=== PATIENT | female | born 1970 | race Caucasian/White ===

== ENCOUNTER 2024-02-04 08:53 | Inpatient (IN) | payer OTHER ==
[2024-02-04] MEDS ORDERED: Lorazepam 2 MG/ML VIAL ONE (09:23)
[2024-02-04 10:05] LABS: #Basophils Less than 0.03 10x3/uL (0.0-0.2); #Eosinophils Less than 0.03 10x3/uL (0.0-0.7); %Basophils 0.2 % (0.0-1.0); %Eosinophils 0.1 % (0.0-10.0); %Neutrophils 86.1 % (42.0-75.0); Hematocrit 35.3 % (36.0-47.0); Hemoglobin 12.1 g/dL (12.0-16.0); Mean Corpuscular HGB CONC 34.3 g/dL (32.0-36.0); Mean Corpuscular Hemoglobin 31.4 pg (27.0-31.0); Mean Corpuscular Volume 91.7 fL (78.0-98.0); Mean Platelet Volume 9.8 fL (7.4-10.4); Platelet Count 191 10x3/uL (130-400); Red Blood Cell (RBC) Count 3.85 mill/uL (4.20-5.40)
[2024-02-04 10:25] LABS: Acetaminophen Less than 10 mcg/mL (Less than 10); Alcohol Less than 10.0 mg/dL (Less than 10); Salicylate Less than 8.0 mg/dL (Less than 8.0)
[2024-02-04 10:27] LABS: ALT (SGPT) 49 U/L (8-55); AST (SGOT) 45 U/L (5-34); Albumin 4.2 g/dL (3.5-5.0); Alkaline Phosphatase 218 U/L (40-110); Anion Gap 16 mmol/L (10-20); BUN (Urea Nitrogen) 9 mg/dL (9.8-20.1); Bilirubin, Total 0.6 mg/dL (0.2-1.2); Calc. Creatinine Clearance 0 mL/min (70-130); Calcium 9.5 mg/dL (7.8-10.44); Carbon Dioxide 22 mmol/L (22-29); Chloride 101 mmol/L (98-107); Estimated GFR 101; Globulin 3.4 g/dL (2.4-3.5); Glucose 141 mg/dL (70-105); Potassium 3.7 mmol/L (3.5-5.1); Protein, Total 7.6 g/dL (6.0-8.3); Sodium 135 mmol/L (136-145)
[2024-02-04 10:29] LABS: INR-International Normal Ratio 1.1; PTT 27.2 sec (22.9-36.1)
[2024-02-04] MEDS ORDERED: Iopamidol-370 76% 500 ML MDV (1 ML CHARGE) ONE (10:37)
[2024-02-04] MEDS ORDERED: Acetaminophen 650 MG Suppository ONE (10:39)
[2024-02-04 10:48] LABS: Bacteria/HPF None Seen HPF (None Seen); Bilirubin Negative (Negative); Blood, Urine Negative (Negative); CAUTI Indications for Culture Acute Hematuria; Clarity Clear (Clear); Glucose, Urine (Dipstick) Normal (Negative); Ketone, Urine Negative (Negative); Leukocyte Negative Leu/uL (Negative); Nitrite Negative (Negative); Protein, Urine (Dipstick) Negative (Neg-Trace); RBC/HPF 0-3 HPF (0-3); Urobilinogen Normal mg/dL (Less than 2); WBC/HPF 0-3 HPF (0-3); pH, Urine 7.5 (5.0-9.0)
[2024-02-04 10:54] LABS: Urine Culture Reflex No No
[2024-02-04 10:59] LABS: Amphetamine Not Detected (NotDetected); Barbiturates Screen Detected (NotDetected); Benzodiazepine Screen Detected (NotDetected); Cocaine Metabolite Screen Not Detected (NotDetected); Methadone Not Detected (NotDetected); Methamphetamine Not Detected (NotDetected); Opiate Screen Detected (NotDetected); Oxycodone Screen Not Detected (NotDetected); Phencyclidine (PCP) Not Detected (NotDetected); THC/Cannabinoid Screen Not Detected (NotDetected); Tricyclic Screen Not Detected (NotDetected)
[2024-02-04 11:51] LABS: Color Of CSF Supernatant COLORLESS (Colorless); Tube # 2; Unspun CSF Color COLORLESS (Colorless)
[2024-02-04 11:56] LABS: Troponin I Less than 0.010 ng/mL (< 0.028)
[2024-02-04 12:06] LABS: CSF Source CSF; Clarity Hazy (Clear); Tube # 1
[2024-02-04 12:22] LABS: CSF Source CSF; Clarity Hazy (Clear); Tube # 4
[2024-02-04 12:29] LABS: CSF, Protein 326.6 mg/dL (15-40)
[2024-02-04 12:36] LABS: CSF, Glucose 66 mg/dl (40-70)
[2024-02-04] MEDS ORDERED: Dexamethasone 10 MG/ML VIAL ONE (13:41)
[2024-02-04] MEDS ORDERED: Sodium Chloride 0.9% 100 ML ONE (13:42)
[2024-02-04] MEDS ORDERED: cefTRIAXone (ROCEPHIN) 2 GM VIAL ONE (13:42)
[2024-02-04 14:21] LABS: Cell Count Non Hematic 23 %; Lymphocytes 76 %; Segmented Neutrophils 1 %
[2024-02-04 14:23] LABS: Cell Count Non Hematic 27 %; Eosinophils 1 %; Lymphocytes 71 %
[2024-02-04] MEDS ORDERED: Morphine 4 MG/ML VIAL ONE ×2 (14:54→18:31)
[2024-02-04] MEDS ORDERED: Acetaminophen 500 MG TAB ONE (14:54)
[2024-02-04] MEDS ORDERED: Ondansetron PF 4 MG/2 ML Vial ONE (14:54)
[2024-02-04 15:15] LABS: Reference Lab Name LABCORP
[2024-02-04] MEDS ORDERED: Thiamine HCl 200 MG/2 ML VIAL ONE (15:23)
[2024-02-04] MEDS ORDERED: Calcium Carbonate 500 MG ChewTAB PO PRN (16:04)
[2024-02-04] MEDS ORDERED: Acetaminophen 650 MG Suppository PR PRN (16:04)
[2024-02-04] MEDS ORDERED: Ondansetron ODT 4 MG TAB PO PRN (16:04)
[2024-02-04] MEDS ORDERED: Lorazepam 2 MG/ML VIAL IM PRN (16:06)
[2024-02-04] MEDS ORDERED: Lorazepam 1 MG TAB PO PRN (16:06)
[2024-02-04] MEDS ORDERED: Electrolyte Replacement Protocol 1 EACH FS SCH (16:15)
[2024-02-04] MEDS ORDERED: Labetalol HCl 100 MG/20 ML VIAL SLOW IVP PRN (17:21)
[2024-02-04] MEDS ORDERED: Lorazepam 2 MG/ML VIAL SLOW IVP PRN (17:24)
[2024-02-04] MEDS ORDERED: Dexamethasone 4 mg/ml Vial SLOW IVP SCH (20:00)
[2024-02-04] MEDS: SODIUM CHLORIDE 0.9% IVPB SCH (20:42)
[2024-02-04] MEDS: Vancomycin (BATCH) 1.75 GM in Premix 1 BAG IVPB SCH (20:42)
[2024-02-04] MEDS: ACYCLOVIR SODIUM IVPB SCH (20:42)
[2024-02-04] MEDS: Vancomycin (BATCH) 1.5 GM in Premix 1 BAG IVPB SCH (20:43)
[2024-02-04] MEDS: Thiamine HCl 200 MG/2 ML VIAL SLOW IVP SCH (20:43)
[2024-02-04 20:48] VITALS: BMI 24.0
[2024-02-04] MEDS ORDERED: Vancomycin 1 GM in Premix 1 BAG IVPB SCH (21:00)
[2024-02-04] MEDS: Lactated Ringer's 1,000 ML IV SCH (21:01)
[2024-02-04] MEDS: Famotidine/PF 20 mg/2ml Vial SLOW IVP SCH (21:02)
[2024-02-04] MEDS: Cyanocobalamin (Vitamin B-12) 1,000 MCG TAB PO SCH (21:02)
[2024-02-04] MEDS: Folic Acid 1 MG TAB PO SCH (21:02)
[2024-02-04] MEDS: Famotidine 20 MG TAB PO SCH (21:02)
[2024-02-04] MEDS: Multivit, Therapeutic 1 TAB PO SCH (21:02)
[2024-02-04] MEDS: Acetaminophen 325 MG TAB PO PRN (22:22)
[2024-02-04] MEDS: Acyclovir Sodium 570 MG in Sodium Chloride 0.9% 100 ML IVPB SCH (23:30)
[2024-02-05] MEDS ORDERED: Amiodarone 450 MG in Dextrose 5% in Water 250 ML IVPB SCH (00:15)
[2024-02-05] MEDS ORDERED: cefTRIAXone\\ROCEPHIN 2 GM in Sodium Chloride 0.9% 100 ML IVPB SCH (02:00)
[2024-02-05 07:00] LABS: #Basophils Less than 0.03 10x3/uL (0.0-0.2); #Eosinophils Less than 0.03 10x3/uL (0.0-0.7); %Basophils 0.2 % (0.0-1.0); %Eosinophils 0.2 % (0.0-10.0); %Lymphocytes 26.1 % (21.0-51.0); %Monocytes 8.1 % (0.0-10.0); %Neutrophils 64.8 % (42.0-75.0); Hematocrit 34.1 % (36.0-47.0); Hemoglobin 11.6 g/dL (12.0-16.0); Mean Corpuscular Hemoglobin 31.3 pg (27.0-31.0); Mean Corpuscular Volume 91.9 fL (78.0-98.0); Mean Platelet Volume 9.9 fL (7.4-10.4); Platelet Count 182 10x3/uL (130-400); RBC Distribution Width 12.2 % (11.5-14.5); Red Blood Cell (RBC) Count 3.71 mill/uL (4.20-5.40)
[2024-02-05 07:18] LABS: ALT (SGPT) 35 U/L (8-55); AST (SGOT) 24 U/L (5-34); Alkaline Phosphatase 191 U/L (40-110); Anion Gap 14 mmol/L (10-20); BUN (Urea Nitrogen) 8 mg/dL (9.8-20.1); Bilirubin, Total 0.5 mg/dL (0.2-1.2); Calc. Creatinine Clearance 97 mL/min (70-130); Calcium 9.8 mg/dL (7.8-10.44); Carbon Dioxide 27 mmol/L (22-29); Chloride 105 mmol/L (98-107); Estimated GFR 98; Globulin 3.5 g/dL (2.4-3.5); Glucose 131 mg/dL (70-105); Magnesium 1.9 mg/dL (1.6-2.6); Phosphorus 3.3 mg/dL (2.3-4.7); Potassium 3.6 mmol/L (3.5-5.1); Protein, Total 7.5 g/dL (6.0-8.3); Sodium 142 mmol/L (136-145)
[2024-02-05] MEDS: Magnesium 2 GM/50 ML(in water) 2 GM in Premix 1 BAG IVPB SCH (09:19)
[2024-02-05] MEDS: Enoxaparin 40 MG (0.4 mL) SYRINGE SC SCH (09:26)
[2024-02-05] MEDS: Fioricet 325/50/40 mg Tablet PO PRN (09:26)
[2024-02-05] MEDS ORDERED: Lorazepam 1 MG TAB PO PRN (16:06)
[2024-02-05] MEDS: busPIRone HCl 10 MG TAB PO SCH (20:34)
[2024-02-05] MEDS: clonazePAM 1 MG TAB PO SCH (20:34)
[2024-02-05] MEDS: Ondansetron PF 4 MG/2 ML Vial IVP PRN (20:34)
[2024-02-06 04:25] LABS: ALT (SGPT) 45 U/L (8-55); AST (SGOT) 52 U/L (5-34); Albumin 3.6 g/dL (3.5-5.0); Alkaline Phosphatase 179 U/L (40-110); Anion Gap 15 mmol/L (10-20); BUN (Urea Nitrogen) 12 mg/dL (9.8-20.1); Bilirubin, Total 0.3 mg/dL (0.2-1.2); Calc. Creatinine Clearance 99 mL/min (70-130); Calcium 8.8 mg/dL (7.8-10.44); Carbon Dioxide 22 mmol/L (22-29); Chloride 106 mmol/L (98-107); Estimated GFR 100; Glucose 101 mg/dL (70-105); Potassium 3.1 mmol/L (3.5-5.1); Protein, Total 6.6 g/dL (6.0-8.3); Sodium 140 mmol/L (136-145)
[2024-02-06] MEDS: Pantoprazole DR 40 MG TAB PO SCH (08:39)
[2024-02-06] MEDS: Potassium Chloride 20 MEQ TAB PO SCH (08:39)
[2024-02-06] MEDS: Venlafaxine HCl XR 75 MG CAP PO SCH (08:39)
[2024-02-06] MEDS: Atorvastatin Calcium 20 MG TAB PO SCH (08:40)
[2024-02-06 09:35] LABS: #Basophils 0.06 10x3/uL (0.0-0.2); %Basophils 0.6 % (0.0-1.0); %Eosinophils 1.5 % (0.0-10.0); %Lymphocytes 16.6 % (21.0-51.0); %Monocytes 6.9 % (0.0-10.0); %Neutrophils 73.9 % (42.0-75.0); Hematocrit 40.4 % (36.0-47.0); Hemoglobin 13.8 g/dL (12.0-16.0); Mean Corpuscular HGB CONC 34.2 g/dL (32.0-36.0); Mean Corpuscular Volume 90.8 fL (78.0-98.0); Platelet Count 188 10x3/uL (130-400); RBC Distribution Width 12.3 % (11.5-14.5); Red Blood Cell (RBC) Count 4.45 mill/uL (4.20-5.40)
[2024-02-06] MEDS ORDERED: Lorazepam 1 MG TAB PO PRN (16:06)
[2024-02-06] MEDS: Senokot S 8.6-50 MG TAB PO PRN (17:18)
[2024-02-07] MEDS ORDERED: Lorazepam 0.5 MG TAB PO PRN (16:06)
[2024-02-07] MEDS: Thiamine 100 MG TAB PO SCH (16:20)
[2024-02-07 17:23] LABS: #Basophils 0.04 10x3/uL (0.0-0.2); %Basophils 0.5 % (0.0-1.0); %Eosinophils 2.7 % (0.0-10.0); %Lymphocytes 16.1 % (21.0-51.0); %Monocytes 6.2 % (0.0-10.0); %Neutrophils 74.3 % (42.0-75.0); Hematocrit 36.4 % (36.0-47.0); Hemoglobin 12.6 g/dL (12.0-16.0); Mean Corpuscular HGB CONC 34.6 g/dL (32.0-36.0); Mean Corpuscular Hemoglobin 31.5 pg (27.0-31.0); Mean Platelet Volume 10.2 fL (7.4-10.4); Platelet Count 200 10x3/uL (130-400); RBC Distribution Width 12.2 % (11.5-14.5)
[2024-02-07 17:39] LABS: Anion Gap 16 mmol/L (10-20); BUN (Urea Nitrogen) 11 mg/dL (9.8-20.1); Calc. Creatinine Clearance 81 mL/min (70-130); Calcium 9.8 mg/dL (7.8-10.44); Carbon Dioxide 21 mmol/L (22-29); Chloride 105 mmol/L (98-107); Estimated GFR 78; Glucose 122 mg/dL (70-105); Potassium 3.8 mmol/L (3.5-5.1); Sodium 138 mmol/L (136-145)
[2024-02-07] MEDS: Cyclobenzaprine 10 MG TAB PO SCH (21:42)
[2024-02-08 07:49] VITALS: TEMP 98.1
[2024-02-08 16:10] VITALS: BP 144/85
[2024-02-08] MEDS: valACYclovir 500 MG TAB PO SCH (16:44)
== END 2024-02-08 17:13 | disposition home or self-care (01) | DRG 75 ==
LOC: ERS 08:53 → ERHOLD 15:30 → IMCU/EMU 19:30 → T4-A 02-06 19:15
PROVIDERS: ADMIT Internal Medicine; ATTEND Student in an Organized Health Care Education/Training Program
PROC: 009U3ZX Drainage of Spinal Canal, Percutaneous Approach, Diagnostic (ICD-10-PCS; principal; 2024-02-04)
PROC: 4A00X4Z Measurement of Central Nervous Electrical Activity, External Approach (ICD-10-PCS; 2024-02-05)
DX: B00.3 Herpesviral meningitis (principal); B00.4 Herpesviral encephalitis; G93.41 Metabolic encephalopathy; E87.20 Acidosis, unspecified; E87.1 Hypo-osmolality and hyponatremia; F10.20 Alcohol dependence, uncomplicated; I10 Essential (primary) hypertension; E78.5 Hyperlipidemia, unspecified; F32.A Depression, unspecified; Z90.710 Acquired absence of both cervix and uterus; E87.6 Hypokalemia; E86.0 Dehydration; K21.9 Gastro-esophageal reflux disease without esophagitis; Z79.899 Other long term (current) drug therapy
CPT/HCPCS: 36415; 36416; 70450; 70496; 70498; 70551; 71045; 80048; 80053; 80306; 80307; 81001; 82945; 83605; 83735; 84100; 84145; 84157; 84484; 85025; 85060; 85610; 85730; 86141; 87070; 87205; 87428; 87798; 89051; 93005; 94760; 95705; J0133; J0696; J1100; J1650; J2060; J2272; J2405; J3370; J3411; J3475; J7120; Q9967